=== PATIENT | female | born 1980 | race Caucasian/White ===

== ENCOUNTER 2017-03-06 10:35 | Emergency (ER) | payer MEDICAID, SELFPAY ==
[2017-03-06 10:51] VITALS: BP 102/72; PULSE 60; RESP 28; TEMP 37.7; O2SAT 100; BMI 38.7
--- NOTE | 2017-03-06 11:00 | HMH.EDUTC ---
[facility] [place]ression: Upper respiratory infection Qualifiers: URI type: unspecified URI Qualified Code(s): J06.9 - Acute upper respiratory infection, unspecified Disposition: Home, Self-Care Condition on Discharge: Good Instructions: Sore Throat, DI for Nasal Congestion Additional Instructions: * Monitor Temp. Tylenol and/or Ibuprofen as needed. ER if fever is no less than 101 despite alternating Tylenol and Ibuprofen * Encourage fluids, water, Gatorade, powerade, pedialyte if /toddler/or child * Warm salt water gargles for throat irritation *Warm fluids *Sore throat lozenges *Sleep elevated *humidifier or vaporizer Lots of rest Increase fluids, water, Gatorade, powerade *Flonase 2 sprays each nostril daily but may take 2-3 days to notice improvement with it *Bromfed may cause drowsiness. Know how it effect you or your child. Before driving, caring for small children or sending your child to school *Your throat swab was sent to lab for culture. Those results area typically sent to your primary care physician. Be sure to follow up in 2-3 days if no improvement so they can review those results and treat if necessary If you dont have primary care I recommend you get one, but in the mean time you will have to return to a walk in clinic Follow up IMMEDIATELY for new or worsening of symptoms OR no noticeable improvement over the next 48-72 hours. 911 immediately for any life threatening symptoms such as chest pain or difficulty breathing Prescriptions: Cefdinir [Omnicef 300mg Capsule] 300 mg PO BID #20 cap Dextromethorphan Polistirex [Delsym] 10 ml PO Q12H PRN #200 gatito.er.12h PRN Reason: Cough predniSONE [Prednisone 20mg Tab] 20 mg PO BID #10 tab Referrals: Giovanni Myers [Primary Care Provider] - Time of Disposition: 11:17 Medical Decision Making - Medical Records Medical records reviewed: Yes: I reviewed the patient's medical records. Vital Signs: 03/06/17 10:51 Temperature 99.8 F H Temperature Source Temporal Artery Scan Pulse Rate [Right] 60 Respiratory Rate 28 H Blood Pressure [Right Arm] 102/72 Blood Pressure Mean [Right Arm] 82 Blood Pressure Source [Right Arm] Automatic Cuff Blood Pressure Position [Right Arm] Sitting 02 Sat by Pulse Oximetry 100 Oxygen Delivery Method Room Air - Adam Inquiry Pt receiving controlled substance: No Adam was queried for this patient: No [facility] [place] - General Stated complaint: cough congested Mode of Arrival: Ambulatory Source of Information: Patient Limitations: No Limitations Description of Symptoms (Recalled from Triage Doc. by RN): COUGH, CONGESTION X2 WKS HEENT Symptoms (Recalled from RN notes): Yes Resp Symptoms (Recalled from RN notes): No Skin Symptoms (Recalled from RN notes): No MS Symptoms (Recalled from RN notes): No Functional Status (Recalled from RN notes): N - History of Present Illness Provider Complaint: Patient state that she has had cough, sinus pain and congestion along with sore throat for about 2 weeks State that on Thu she began to run a fever and now she has some sores under her nose where she has blown her nose so much State that she came in today because everything that she has tried has not helped her to feel better - Related Data Previous Rx's Medication Instructions Recorded Cefdinir [Omnicef 300mg Capsule] 300 mg PO BID #20 cap 03/06/17 Dextromethorphan Polistirex 10 ml PO Q12H PRN #200 gatito.er.12h 03/06/17 [Delsym] predniSONE [Prednisone 20mg 20 mg PO BID #10 tab 03/06/17 Tab] Allergies Allergy/AdvReac Type Severity Reaction Status Date / Time No Known Allergies Allergy Verified 03/06/17 10:56 - Worker's Comp Is this a Worker's Comp case?: No [facility] History I have reviewed the patient's past medical history: Yes - *Social History Alcohol Intake: never - Psychiatric History Expresses thoughts of harming self/others: None Suicide Plan Description: No Plan ROS Obtained: Yes
--- NOTE | 2017-03-06 11:03 | ED_ITS ---
[facility] [place]ression: Upper respiratory infection Qualifiers: URI type: unspecified URI Qualified Code(s): J06.9 - Acute upper respiratory infection, unspecified Disposition: Home, Self-Care Condition on Discharge: Good Instructions: Sore Throat, DI for Nasal Congestion Additional Instructions: * Monitor Temp. Tylenol and/or Ibuprofen as needed. ER if fever is no less than 101 despite alternating Tylenol and Ibuprofen * Encourage fluids, water, Gatorade, powerade, pedialyte if /toddler/or child * Warm salt water gargles for throat irritation *Warm fluids *Sore throat lozenges *Sleep elevated *humidifier or vaporizer Lots of rest Increase fluids, water, Gatorade, powerade *Flonase 2 sprays each nostril daily but may take 2-3 days to notice improvement with it *Bromfed may cause drowsiness. Know how it effect you or your child. Before driving, caring for small children or sending your child to school *Your throat swab was sent to lab for culture. Those results area typically sent to your primary care physician. Be sure to follow up in 2-3 days if no improvement so they can review those results and treat if necessary If you don? t have primary care I recommend you get one, but in the mean time you will have to return to a walk in clinic Follow up IMMEDIATELY for new or worsening of symptoms OR no noticeable improvement over the next 48-72 hours. 911 immediately for any life threatening symptoms such as chest pain or difficulty breathing Prescriptions: Cefdinir [Omnicef 300mg Capsule] 300 mg PO BID #20 cap Dextromethorphan Polistirex [Delsym] 10 ml PO Q12H PRN #200 gatito.er.12h PRN Reason: Cough predniSONE [Prednisone 20mg Tab] 20 mg PO BID #10 tab Referrals: Giovanni Myers [Primary Care Provider] - Time of Disposition: 11:17 Medical Decision Making - Medical Records Medical records reviewed: Yes: I reviewed the patient's medical records. Vital Signs: 03/06/17 10:51 Temperature 99.8 F H Temperature Source Temporal Artery Scan Pulse Rate [Right] 60 Respiratory Rate 28 H Blood Pressure [Right Arm] 102/72 Blood Pressure Mean [Right Arm] 82 Blood Pressure Source [Right Arm] Automatic Cuff Blood Pressure Position [Right Arm] Sitting 02 Sat by Pulse Oximetry 100 Oxygen Delivery Method Room Air - Adam Inquiry Pt receiving controlled substance: No Adam was queried for this patient: No [facility] [place] - General Stated complaint: cough congested Mode of Arrival: Ambulatory Source of Information: Patient Limitations: No Limitations Description of Symptoms (Recalled from Triage Doc. by RN): COUGH, CONGESTION X2 WKS HEENT Symptoms (Recalled from RN notes): Yes Resp Symptoms (Recalled from RN notes): No Skin Symptoms (Recalled from RN notes): No MS Symptoms (Recalled from RN notes): No Functional Status (Recalled from RN notes): N - History of Present Illness Provider Complaint: Patient state that she has had cough, sinus pain and congestion along with sore throat for about 2 weeks State that on Thu she began to run a fever and now she has some sores under her nose where she has blown her nose so much State that she came in today because everything that she has tried has not helped her to feel better - Related Data Previous Rx's Medication Instructions Recorded Cefdinir [Omnicef 300mg Capsule] 300 mg PO BID #20 cap 03/06/17 Dextromethorphan Polistirex 10 ml PO Q12H PRN #200 gatito.er.12h 03/06/17
[2017-03-10 14:19] LABS: UTC Influenza A Antigen Negative (Negative); UTC Influenza B Antigen Negative (Negative)
== END 2017-03-06 11:28 | disposition home or self-care (01) ==
PROVIDERS: Emergency Provider Nurse Practitioner; Family Provider Pediatrics; PCP Pediatrics
DX: J06.9 Acute upper respiratory infection, unspecified (principal)
CPT/HCPCS: 81003; 87804; 99201; 99202

== ENCOUNTER 2018-03-28 21:23 | Emergency (ER) | payer BC, SELFPAY ==
[2018-03-28 21:32] VITALS: BP 133/85; PULSE 99; RESP 16; TEMP 36.9; O2SAT 100; BMI 35.5
--- NOTE | 2018-03-28 21:39 | CT_ITS ---
CT abdomen pelvis wo con INDICATION: Right lower quadrant pain. Period ITS.REASON: r/o kidney stone ORDERING PHYSICIAN: Andrew Ealr MD PATIENT AGE: 37 years COMPARISON: Previous CT abdomen 09/22/2014 TECHNIQUE: No oral nor IV contrast utilized. Axial images obtained with sagittal and coronal reformats. All CT scans at the facility use one or more dose reduction, viz: automated exposure control, ma/kV adjustment per patient size (including targeted exams where dose is matched to indication, i.e. head), or iterative reconstruction technique. FINDINGS: Lung bases clear. No active disease heart normal size Abdomen/pelvis. Lack of oral and IV contrast somewhat decreases sensitivity. Noncontrast images of liver, spleen, pancreas, adrenals and kidneys are unremarkable. No urinary tract calculi nor obstruction evident. Ureters are normal in course and caliber. No calculi. . Pelvis. Uterus appears upper normal in size. Normal anteverted configuration. No significant fluid in cul-de-sac. No significant adnexal masses The right ovary but measures up to 3.8 cm in length and is slightly larger than the left with a few small follicles.. . The portions of the visualized appendix appears normal. No evidence of appendicitis.. There is a small lymph node seen towards right lower quadrant on axial image 62 which is slightly larger than previous study. Unimpressive doubt mesenteric adenitis with this isolated node. It measures 13 mm x 8 mm.. There are a few other tiny nodes in the right pelvis. Unimpressive. No wall thickening at the colon and associated. The terminal ileum appears normal diameter. Moderate to generous stool at the right colon. There is gas at the transverse colon. Minimal stool and contents at the left colon and rectosigmoid. Upper normal wall thickening at the rectosigmoid most likely reflecting lack of distention. Moderately distended fluid and food filled stomach. A. Small bowel appears satisfactory. No dilatation. No wall thickening. No increase fluid. No significant air-fluid levels.No fluid or free air in the abdomen or pelvis. No fluid or free air in the abdomen or pelvis Again noted Osseous. No significant findings. Facet arthropathy lower L-spine noted.. Tiny fat-containing umbilical hernia -------IMPRESSION: 1. No acute findings in the abdomen or pelvis. 2.No urinary tract calculi nor obstruction. Kidneys unremarkable. 3. Regard RLQ pain:: No evidence of appendicitis. .. One or 2 slightly more evident mesenteric lymph node today towards RLQ noted but these are unimpressive. No No inflammatory changes of terminal ileum or elsewhere at RLQ evident 4. No adnexal masses. Right ovary is upper upper normal in size with small follicles. No significant fluid in cul-de-sac
[2018-03-28 21:44] LABS: Appearance,Urine CLEAR (Clear); Bilirubin,Urine Negative (Negative); Blood, Urine 2+ (Negative); Color,Urine YELLOW (Yellow); Glucose,Urine (UA) Negative (Negative); Ketones,Urine Negative (Negative); Leukocyte Esterase,Urine 1+ (Negative); Microscopic, Urine URINE MICROSCOPIC (MICROSCOPIC); Nitrate,Urine Negative (Negative); PH,Urine 6.5 (5.0-8.5); Protein,Urine 1+ (Negative); Urobilinogen,Urine 0.2 EU/dl (0.2)
[2018-03-28 21:46] LABS: RBC,Urine 20-50 #/hpf (0-3)
[2018-03-28 22:05] LABS: Basophils % 0.4 % (0.1-2.0); Eosinophils # 0.1 K/mm3 (0.0-0.4); Eosinophils % 0.5 % (0.1-12.0); Hematocrit 32.1 % (37.0-47.0); Hemoglobin 9.2 g/dL (12.2-16.2); Lymphocytes # 2.6 K/mm3 (0.7-4.5); Lymphocytes % 26.9 % (10-50); Mean Corpuscular HGB Conc 28.9 g/dL (31.8-35.4); Mean Corpuscular Hemoglobin 19.4 pg (27.0-31.2); Mean Corpuscular Volume 67.4 fl (81-99); Mean Platelet Volume 6.3 fl (7.4-10.4); Monocytes # 0.6 K/mm3 (0.1-1.0); Neutrophils # 6.3 K/mm3 (1.8-7.8); Neutrophils % 66.1 % (37.0-80.0); Platelet Count 378 K/mm3 (142-424); Red Blood Count 4.76 M/mm3 (4.20-5.40); Red Cell Distribution Width 17.1 % (11.5-17.5); White Blood Count 9.5 K/mm3 (4.8-10.8)
--- NOTE | 2018-03-28 22:05 | HMH.EDUROGF ---
ED Disposition Clinical Impression: UTI (urinary tract infection) Qualifiers: Urinary tract infection type: acute cystitis Hematuria presence: without hematuria Qualified Code(s): N30.00 - Acute cystitis without hematuria Anemia Qualifiers: Anemia type: unspecified type Qualified Code(s): D64.9 - Anemia, unspecified Disposition: Home, Self-Care Condition on Discharge: Good Instructions: DI for Urinary Tract Infection (UTI) Additional Instructions: use meds and see pcp about anemia and urine culture Prescriptions: cephALEXin [Keflex 500mg Cap] 500 mg PO TID #30 cap Referrals: Andrew Earl MD [Primary Care Provider] - - Critical Care Critical Care Time: No Attestation: On 03/28/18, the high probability of a clinically significant, sudden or life threatening deterioration of the following system(s) required my full and direct attention, intervention and personal management. The time I documented below is in addition to time spent performing reported procedures but includes the following listed in this critical care notation. Medical Decision Making - Medical Records Medical records reviewed: Yes: I reviewed the patient's medical records. - Adam Inquiry Pt receiving controlled substance: No Vital Signs: 03/28/18 21:32 Temperature 98.5 F Temperature Source Oral Pulse Rate [Right Radial] 99 H Respiratory Rate 16 Blood Pressure [Right Arm] 133/85 Blood Pressure Mean [Right Arm] 101 02 Sat by Pulse Oximetry 100 - Lab Data Lab results reviewed: Yes: I reviewed the patient's lab results. Lab Results 03/28/18 21:35: Urine Color Yellow, Urine Appearance Clear, Urine pH 6.5, Ur Specific [place] 1.010, Urine Protein 1+, Urine Glucose (UA) Negative, Urine Ketones Negative, Urine Blood 2+, Urine Nitrate Negative, Urine Bilirubin Negative, Urine Urobilinogen 0.2, Ur Leukocyte Esterase 1+ A, Urine RBC 20-50, Urine WBC 10-20 03/28/18 21:50: WBC 9.5, RBC 4.76, Hgb 9.2 L, Hct 32.1 L, MCV 67.4 L, MCH 19.4 L, MCHC 28.9 L, RDW 17.1, Plt Count 378, MPV 6.3 L, Neut % (Auto) 66.1, Lymph % (Auto) 26.9, Foard % (Auto) 6.0, Eos % (Auto) 0.5, Baso % (Auto) 0.4, Neut # (Auto) 6.3, Lymph # (Auto) 2.6, Foard # (Auto) 0.6, Eos # (Auto) 0.1, Baso # (Auto) 0.0 03/28/18 21:50: Sodium 139, Potassium 3.3 L, Chloride 103, Carbon Dioxide 26, Anion Gap 13.3, BUN 11, Creatinine 0.76, Estimated Creat Clear 161, Estimated GFR 86, Est GFR ( Amer) 104, Glucose 106, Calcium 8.8, Total Bilirubin 0.8, AST 24, ALT 35, Alkaline Phosphatase 132 H, Total Protein 7.2, Albumin 3.5, Globulin 3.7 H, Albumin/Globulin Ratio 0.9 L Result diagrams: 03/28/18 21:50 03/28/18 21:50 Orders (Tests/Meds): ED MEDICATIONS Generic Name Dose Route Start Last Admin Trade Name Freq PRN Reason Stop Dose Admin Sodium Chloride 1,000 mls @ 999 mls/hr 03/28/18 21:45 03/28/18 21:51 Sod Chlor 0.9% 1000ml Bag IV 03/28/18 22:45 999 mls/hr .Q1H1M RODDY Administration Ceftriaxone Sodium 1 gm/ 50 mls @ 100 mls/hr 03/28/18 23:14 Sodium Chloride IV 03/28/18 23:43 ONCE ONE Protocol Sodium Chloride 10 ml 03/28/18 21:39 Saline Flush 10ml Syringe IV 04/27/18 21:38 NEEDED PRN Maintain IV Site Discontinued Medications Generic Name Dose Route Start Last Admin Trade Name Freq PRN Reason Stop Dose Admin Ceftriaxone Sodium 1 gm 03/28/18 23:10 03/28/18 23:14 Rocephin 1gm Vial IM 03/28/18 23:11 Not Given ONCE ONE Protocol Ketorolac Tromethamine 30 mg 03/28/18 21:51 03/28/18 21:52 Toradol 30mg/Ml Vial IV 03/28/18 21:52 30 mg ONCE ONE Administration Lidocaine HCl 0 ml 03/28/18 23:10 Lidocaine 1% 10ml Mdv IM 03/28/18 23:11 ONCE ONE ORDERS Category Date Time Status CT abdomen pelvis wo con Stat Cat Scan 03/28/18 21:39 Taken
[2018-03-28 22:17] LABS: Alanine Aminotransferase 35 U/L (12-78); Albumin Level 3.5 gm/dL (3.4-5.0); Albumin/Globulin Ratio 0.9 (1.1-1.8); Alkaline Phosphatase 132 U/L (46-116); Anion Gap 13.3 mEq/L (5-15); Aspartate Amino Transferase 24 U/L (15-37); Bilirubin,Total 0.8 mg/dL (0.2-1.0); Blood Urea Nitrogen 11 mg/dL (7-18); Calcium 8.8 mg/dL (8.5-10.1); Carbon Dioxide 26 mmol/L (21.0-32.0); Chloride 103 mmol/L (98-107); Creatinine Clearance Estimated 161 mL/min (50-200); Creatinine,Serum 0.76 mg/dL (0.55-1.02); Estimated Glomerular Filt Rate 86 ml/min (>60); GFR (African American) 104 ML/MIN (>60); Globulin 3.7 gm/dl (1.3-3.2); Glucose 106 mg/dL (74-106); Potassium 3.3 mmoL/L (3.5-5.1); Sodium 139 mmol/L (136-145); Total Protein,Serum 7.2 gm/dL (6.4-8.2)
[2018-03-28 23:21] VITALS: BP 121/78; PULSE 79; RESP 16; TEMP 36.6; O2SAT 99
== END 2018-03-28 23:26 | disposition home or self-care (01) ==
PROVIDERS: Emergency Provider Emergency Medicine; PCP Emergency Medicine
DX: N30.00 Acute cystitis without hematuria (principal); D64.9 Anemia, unspecified
CPT/HCPCS: 74176; 80053; 81001; 85025; 87086; 87088; 87186; 96365; 96375; 99283

== ENCOUNTER → 2018-04-06 14:41 | Outpatient (CLI) | payer BC, SELFPAY ==
[2018-04-06 15:05] LABS: Basophils % 0.5 % (0.1-2.0); Eosinophils % 0.5 % (0.1-12.0); Hematocrit 32.5 % (37.0-47.0); Hemoglobin 9.4 g/dL (12.2-16.2); Lymphocytes # 2.7 K/mm3 (0.7-4.5); Lymphocytes % 31.6 % (10-50); Mean Corpuscular HGB Conc 28.9 g/dL (31.8-35.4); Mean Platelet Volume 7.3 fl (7.4-10.4); Monocytes # 0.6 K/mm3 (0.1-1.0); Monocytes % 6.4 % (1.7-9.3); Neutrophils # 5.3 K/mm3 (1.8-7.8); Neutrophils % 61.1 % (37.0-80.0); Platelet Count 404 K/mm3 (142-424); Red Blood Count 4.71 M/mm3 (4.20-5.40); Red Cell Distribution Width 17.2 % (11.5-17.5); White Blood Count 8.7 K/mm3 (4.8-10.8)
[2018-04-06 15:28] LABS: Hemoglobin A1C 5.5 % (0.0-7.0)
[2018-04-06 15:45] LABS: Chol/HDL Ratio 4.6 (1-3.5); Cholesterol 175 mg/dL (140-200); Ferritin 4 ng/mL (8-388); Free T4 (Free Thyroxine) 0.96 ng/dl (0.76-1.46); HDL Cholesterol 38 mg/dL (29-89); LDL Cholesterol 106 mg/dL (0-130); Thyroid Stimulating Hormone 2.59 uIU/ml (0.358-3.740); Triglycerides 154 mg/dL (30-200); VLDL Cholesterol 31 mg/dL (0-40)
[2018-04-08 07:16] LABS: Iron 13 ug/dL (27-159); UIBC 479 ug/dL (131-425)
[2018-04-08 07:33] LABS: Iron Saturation 3 % (15-55)
[2018-04-08 09:24] LABS: Vitamin D 25 Hydroxy 18.3 ng/mL (30.0-100.0)
== END ==
PROVIDERS: Visit Provider Nurse Practitioner Family
DX: D64.9 Anemia, unspecified (principal); R53.83 Other fatigue
CPT/HCPCS: 80061; 82652; 82728; 83036; 83540; 83550; 84439; 84443; 85025

== ENCOUNTER → 2019-01-28 17:20 | Outpatient (CLI) | payer BC, SELFPAY ==
--- NOTE | 2019-01-28 17:28 | XR_ITS ---
PROCEDURE: XR CHEST 2V CLINICAL HISTORY: cough COMPARISON: CXR2V XR chest 2V from 06/25/2017 FINDINGS: The cardiomediastinal silhouette and pulmonary vascularity are within normal limits. The lungs are clear without infiltrates, suspicious nodules, or pleural effusions. No acute bony abnormalities. IMPRESSION: No acute findings. Dictated by: Gene Craig MD 01/29/2019 06:15 Electronically signed by Gene Craig MD in [place] 01/29/2019 06:15
== END ==
PROVIDERS: PCP Nurse Practitioner Family; Visit Provider Nurse Practitioner Family
DX: R09.89 Other specified symptoms and signs involving the circulatory and respiratory systems (principal)
CPT/HCPCS: 71046

== ENCOUNTER 2020-08-06 17:29 | Emergency (ER) | payer BC, SELFPAY ==
--- NOTE | 2020-08-06 19:00 | HMH.EDUTC ---
[facility] – [place] Clinical Impression: Sinusitis Qualifiers: Sinusitis location: unspecified location Chronicity: acute Recurrence: non-recurrent Qualified Code(s): J01.90 - Acute sinusitis, unspecified Disposition: Home, Self-Care Condition on Discharge: Good Instructions: Middle Ear Infection, DI for Sinusitis Additional Instructions: Drink plenty of fluids. Take tylenol or ibuprofen for pain or fever. Take the medications as directed. Follow up with your regular doctor. GO TO THE ER FOR ANY WORSENING SYMPTOMS Prescriptions: Amoxicillin/Potassium Clav [Augmentin 875-125 Tablet] 1 tab PO Q12H 10 Days #20 tab Transmission Status: Received by [facility] methylPREDNISolone [Medrol] 4 mg PO DIRECTED 6 Days #21 tab.[email or web address] Transmission Status: Received by [facility] Referrals: Andrew Earl MD [Primary Care Provider] - Time of Disposition: 19:47 Medical Decision Making - Medical Records Medical records reviewed: No: I reviewed the patient's medical records. - Adam Inquiry Pt receiving controlled substance: No Vital Signs: 08/06/20 19:34 08/06/20 19:50 Temperature 98.4 F 98.4 F Temperature Source Oral Pulse Rate 81 Pulse Rate [Right] 81 Respiratory Rate 16 18 Blood Pressure 121/77 Blood Pressure [Right Arm] 121/77 Blood Pressure Mean [Right Arm] 91 02 Sat by Pulse Oximetry 99 [facility] [place] HPI - General Stated complaint: headaches weakness dizzy Time Seen by Provider: 08/06/20 19:00 - History of Present Illness Provider Complaint: She c/o sinus congestion and head ache for the past 2 day. - Related Data Previous Rx's Medication Instructions Recorded cholecalciferol (vitamin D3) 125 5,000 unit PO DAILY #30 cap 04/09/18 mcg (5,000 unit) capsule ergocalciferol (vitamin D2) 1,250 50,000 unit PO QWEEK #4 cap 04/09/18 mcg (50,000 unit) capsule ferrous sulfate 325 mg (65 mg 325 mg PO DAILY #30 tab 04/15/18 iron) tablet Amoxicillin [Amoxicillin 875MG 875 mg PO Q12H #20 tab 01/21/19 Tab] albuterol sulfate 90 mcg/actuation 1 puff INHALATION Q6H 30 Days #6.7 01/28/19 aerosol inhaler g azithromycin 250 mg tablet 250 mg PO .COMPLEX 5 Days #6 tab 01/28/19 Promethazine/Dextromethorphan 5 ml PO Q6HP PRN #240 syrup 01/30/19 [Promethazine-Dm Syrup] methylPREDNISolone [Medrol] 4 mg PO DIRECTED 6 Days #21 01/30/19 tab.ds.pk Amoxicillin/Potassium Clav 1 tab PO Q12H 10 Days #20 tab 08/06/20 [Augmentin 875-125 Tablet] methylPREDNISolone [Medrol] 4 mg PO DIRECTED 6 Days #21 08/06/20 tab.ds.pk Allergies Allergy/AdvReac Type Severity Reaction Status Date / Time No Known Allergies Allergy Verified 08/06/20 19:26 [facility] History - Hepatitis A Screen Attestation statement:: This patient has been screened for Hepatitis A risk factors. I have reviewed the patient's past medical history: Yes Medical History: Denies:: Cancer, Diabetes Mellitus Type 1, Diabetes Mellitus Type 2, Hypertension, MRSA Comment: Anemia Other Surgeries: Yes: , Tubal Ligation, Other Amputation: No Fractures: No Comment: foot - Social History Smoking Status: Never smoker Alcohol Intake: never Substance Use Type: denies use Occupational Status: unemployed Housing: house Household Members: family, spouse, children Family Hx:: Cancer, Heart Attack, Diabetes, Hyperlipidemia, Hypertension ROS Obtained: Yes All systems reviewed & no additional complaints - Constitutional Constitutional: Denies chills, Denies fever(s) - ENT Ears, Nose, Mouth, and Throat: Reports as per HPI - Cardiovascular Cardiovascular: Denies chest pain - Respiratory Respiratory: Reports as per HPI - Gastrointestinal Gastrointestingal: Denies: abdominal pain, diarrhea, nausea, vomiting Physical Exam - General General appearance: alert, in no apparent distress - Head Head exam: atraumatic, normocephalic, normal inspection - Eye Eye exam: Present: normal appearance, P
[2020-08-06 19:34] VITALS: BP 121/77; PULSE 81; RESP 16; TEMP 36.9; O2SAT 99; BMI 40.7
[2020-08-06 19:50] VITALS: BP 121/77; PULSE 81; RESP 18; TEMP 36.9
== END 2020-08-06 19:54 | disposition home or self-care (01) ==
PROVIDERS: Emergency Provider Nurse Practitioner Family; PCP Emergency Medicine
DX: J01.90 Acute sinusitis, unspecified (principal)
CPT/HCPCS: 99202; G0463